=== PATIENT | male | born 1990 | race Caucasian/White ===

== ENCOUNTER → 2017-03-26 | Outpatient (CLI) | payer OTHER | END | disposition home or self-care (01) | LOC: C.LAB 03:15 | DX: Z02.83 Encounter for blood-alcohol and blood-drug test (principal) ==

== ENCOUNTER 2017-05-07 02:06 | Emergency (ER) | payer BC, OTHER ==
[~2017-05-07] VITALS: Ht 177.8 cm; Wt 74.1 kg
[2017-05-07 02:10] VITALS: TEMP 36.7; Ht 177.8 cm; Wt 74.1 kg
[2017-05-07] MEDS ORDERED: GELATIN SPONGE 12-7MM ONE (02:18)
[2017-05-07 02:51] VITALS: BP 138/76; PULSE 79; O2SAT 96
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
== END 2017-05-07 02:52 | disposition home or self-care (01) ==
LOC: C.EDB 02:07
DX: S61.012A Laceration without foreign body of left thumb without damage to nail, initial encounter (principal); W45.8XXA Other foreign body or object entering through skin, initial encounter